=== PATIENT | male | born 1975 | race Caucasian/White ===

== ENCOUNTER 2017-10-16 16:53 | Emergency (ER) | payer OTHER ==
[~2017-10-16] VITALS: Ht 175.3 cm; Wt 104.5 kg
[2017-10-16 17:28] LABS: BASOPHILS # (AUTO) 0.04 K/uL (0.00-0.20); BASOPHILS % (AUTO) 0.3 % (0.0-2.0); EOSINOPHILS # (AUTO) 0.18 K/uL (0.00-0.70); EOSINOPHILS % (AUTO) 1.55 % (1.0-6.0); HEMATOCRIT 45.5 % (41-53); HEMOGLOBIN 14.6 g/dL (13.5-17.5); LYMPHOCYTES % (AUTO) 26.3 % (22.0-44.0); MEAN CORPUSCULAR HEMOGLOBIN 27.9 pg (26.0-34.0); MEAN CORPUSCULAR HGB CONC 32.2 G/dL (31.0-37.0); MEAN CORPUSCULAR VOLUME 87 fL (80-100); MONOCYTES # (AUTO) 0.7 K/uL (0.1-1.0); MONOCYTES % (AUTO) 6.2 % (2.0-9.0); NEUTROPHILS # (AUTO) 7.4 K/uL (1.8-7.7); NEUTROPHILS % (AUTO) 65.7 % (40.0-70.0); PLATELET COUNT (AUTO) 237 K/uL (150-450); RED BLOOD CELL COUNT(AUTO) 5.25 MIL/uL (4.50-5.90); RED CELL DISTRIBUTION WIDTH 13.6 % (11.5-14.5)
[2017-10-16 17:43] LABS: ANION GAP 9 mmol/L (8-16); CALCIUM, TOTAL 9.2 mg/dL (8.8-10.5); CARBON DIOXIDE 29 mmol/L (22-29); CHLORIDE 102 mmol/L (98-107); CREATININE 0.91 mg/dL (0.60-1.30); GLOMERULAR FILTR. RATE CALC > 60 mL/min (>60); GLUCOSE,RANDOM 123 mg/dL (70-110); POTASSIUM 3.9 mmol/L (3.5-5.1); SODIUM SERUM 140 mmol/L (136-145); UREA NITROGEN, BLOOD 15 mg/dL (7-18)
[2017-10-16] MEDS ORDERED: LIDOCAINE HCL 1%/EPI 1:200,000/PF 10 ML VIAL INJ ONE (21:45)
[2017-10-16] MEDS ORDERED: LIDOCAINE HCL 1%/EPI 1:200,000/PF 30 ML VIAL INJ ONE (22:15)
[2017-10-16 23:00] VITALS: BP 121/78
== END 2017-10-16 23:42 | disposition home or self-care (01) ==
LOC: EMS 16:55
DX: K64.4 Residual hemorrhoidal skin tags (principal)
CPT/HCPCS: 36415; 80048; 85025; 93005; 99285; J3490

== ENCOUNTER 2021-11-13 14:01 | Emergency (ER) | payer OTHER ==
[~2021-11-13] VITALS: Ht 175.3 cm; Wt 109.1 kg
[2021-11-13] MEDS ORDERED: FLUORESCEIN SODIUM 1 MG STRIP OU ONE (14:30)
[2021-11-13] MEDS ORDERED: PROPARACAINE HCL 0.5% 15 ML OPHTHALMIC SOLUTION OU ONE (14:30)
[2021-11-13] MEDS ORDERED: ERYTHROMYCIN 0.5% 3.5 GM TUBE OPHTHALMIC OINTMENT OD ONE (17:15)
[2021-11-13 17:28] VITALS: BP 135/75
[2021-11-13] MEDS ORDERED: HYDR-4723 PO (17:33)
[2021-11-14] MEDS ORDERED: HYDR-4723 PO (12:06)
== END 2021-11-13 17:46 | disposition home or self-care (01) ==
LOC: EMS 14:08
DX: S05.01XA Injury of conjunctiva and corneal abrasion without foreign body, right eye, initial encounter (principal); W22.8XXA Striking against or struck by other objects, initial encounter; Y93.89 Activity, other specified; Y92.89 Other specified places as the place of occurrence of the external cause; Y99.8 Other external cause status
CPT/HCPCS: 99173; 99283